=== PATIENT | female | born 1950 | race Two or more races ===

== ENCOUNTER 2024-05-18 10:54 | Outpatient (REF) | payer MEDICARE, OTHER, SELFPAY ==
--- NOTE | ~2024-05-18 | XR_ITS ---
EXAMINATION: XR HAND/WRIST, LEFT CLINICAL INFORMATION: Arthropathic psoriasis. COMPARISON: None available. TECHNIQUE: PA, lateral, oblique, and scaphoid views of the left hand and wrist. FINDINGS: Mild osteopenia. There is no evidence of focal erosion or subperiosteal resorption. Deformity of the left distal radial metaphysis is noted likely related to prior trauma, recommend clinical correlation. Small ossification noted adjacent to the ulnar styloid likely represents old avulsion fracture. There is minimal positive ulnar variance. Mild deformity at the wrist joint. Mild osteoarthritic changes are noted at the first MCP joint and multiple interphalangeal joints. No soft tissue calcifications. Mild arthritic changes at the radiocarpal articulation. No evidence of acute fracture or dislocation. XR/XR hand wrist LT IMPRESSION: No focal erosion or subperiosteal resorption is seen. Mild osteopenia in the left hand. Deformity of the distal radial metaphysis, small ossification adjacent to the ulnar styloid and mild positive ulnar variance most likely reflect sequela of prior trauma. Recommend clinical correlation. Mild osteoarthritic changes at the first MCP joint and radiocarpal joints.
--- NOTE | ~2024-05-18 | XR_ITS ---
EXAMINATION: XR HAND/WRIST, RIGHT CLINICAL INFORMATION: Arthropathic psoriasis. COMPARISON: None available. TECHNIQUE: PA, lateral, oblique, and scaphoid views of the right hand and wrist. FINDINGS: Probable mild osteopenia. No focal erosion or subperiosteal resorption is seen. Osteoarthritic changes are noted at multiple interphalangeal joints as well as 1st MCP joint with the greatest changes noted at the 1st interphalangeal joint with narrowing of the joint space, subarticular sclerosis and marginal osteophytes. [id number] osteoarthritic changes are noted at the 1st MCP joint, 2nd, 3rd and 4th DIP joints. No significant degenerative or arthropathic changes are noted in the wrist. No focal erosion is noted in the wrist. No soft tissue calcifications. No evidence of acute fracture or dislocation. XR/XR hand wrist RT IMPRESSION: No evidence of focal erosion or subperiosteal resorption in the right hand and wrist. Osteoarthritic changes at multiple interphalangeal joints and 1st MCP joint.
[2024-05-18 13:41] LABS: Basophils Percent Auto 0.5 % (0-2); Eosinophils Absolute Auto 0.1 X10*3/uL (0.0-0.4); Eosinophils Percent Auto 1.8 % (0-4); Hematocrit 38.3 % (37.0-47.0); Imm Gran Abs Auto 0.03 X10*3/uL (0.00-0.03); Imm Gran Pct Auto 0.5 % (0.0-0.4); Lymphocytes Percent Auto 33.1 % (20-40); MANUAL DIFF FLAG SCAN; Mean Corpuscular HGB Conc 31.3 g/dl (31.0-35.0); Mean Corpuscular Volume 86.1 fL (80.0-98.0); Mean Platelet Volume 9.2 fL (9.4-12.3); Monocytes Absolute Auto 0.5 X10*3/uL (0.1-1.2); Monocytes Percent Auto 8.1 % (2-11); Neutrophils Absolute Auto 3.5 x10*3/uL (2.0-8.3); Platelet Count 119 X10*3/uL (160-400); Red Blood Count 4.45 X10*6/uL (4.20-5.50); Red Cell Distribution Width 14.4 % (11.0-16.0); SCAN SMEAR FLAG 1; White Blood Count 6.2 X10*3/uL (4.8-10.8)
[2024-05-18 14:13] LABS: SLIDE REVIEW VERIFIED
[2024-05-18 14:20] LABS: Rheumatoid Factor < 13.0 IU/mL (<15.0)
[2024-05-18 14:21] LABS: Alanine Aminotransferase 12 U/L (0-31); Albumin Level 4.5 g/dL (3.5-5.0); Alkaline Phosphatase 117 U/L (39-117); Anion Gap 16 (12-20); Aspartate Amino Transferase 19 U/L (5-31); Bilirubin Total 0.6 mg/dL (0.0-1.0); Blood Urea Nitrogen 19 mg/dL (9-16); C Reactive Protein 2.12 mg/dL (< or = 0.50); Calcium 9.8 mg/dL (8.4-10.2); Carbon Dioxide 25 mmol/L (22-29); Chloride 105 mmol/L (96-108); Erythrocyte Sedimentation Rate 17 MM/HR (0-20); Estimated Glomerular Filt Rate > 60; Glucose Random 103 mg/dL (60-115); Potassium 4.3 mmol/L (3.3-5.1); Sodium 142 mmol/L (135-145); Total Protein 6.8 g/dL (6.5-8.0)
[2024-05-19 05:12] LABS: HBS Num1 0.28 mIU/mL (0-7.99); HBc Num1 0.07 S/CO (0.00-0.79); HBsAGNum1 0.21 S/CO (0.00-0.99); Hepatitis A Antibody IgM 0.13 Index (0-0.79); Hepatitis B Core Antibody Nonreactive (Nonreactive); Hepatitis B Surface Antigen Negative (Negative); ~Hepatitis A Antibody IgM Nonreactive (Nonreactive); ~Hepatitis B Surface Antibody NONREACTIVE (Nonreactive); ~Hepatitis C Antibody Reactive (Nonreactive)
[2024-05-19 10:18] LABS: Complement C3 117 mg/dL (83-193)
[2024-05-19 14:18] LABS: HCV Log PCR <1.18 NOT DETECTED Log IU/mL (NOT DETECTED); HepC Viral Load <15 NOT DETECTED IU/mL (NOT DETECTED)
[2024-05-19 17:38] LABS: Lyme Abs Screen <0.90 index
[2024-05-20 14:18] LABS: IgA 26 mg/dL (70-320); IgG 640 mg/dL (600-1540); IgM 26 mg/dL (50-300)
[2024-05-20 15:18] LABS: Cyclic Citrullinated Peptide <16 UNITS
[2024-05-20 21:14] LABS: Anti DNA DS Antibody <1 IU/mL; Antibody to SS-A Antigen <1.0 NEG AI (<1.0 NEG); Antibody to SS-B Antigen <1.0 NEG AI (<1.0 NEG); SM/Ribonucleoprotein Ab <1.0 NEG AI (<1.0 NEG); Smith Protein <1.0 NEG AI (<1.0 NEG)
[2024-05-20 22:34] LABS: Prot Elec - Albumin 4.2 g/dL (3.8-4.8); Prot Elec - Alpha1 0.4 g/dL (0.2-0.3); Prot Elec - Alpha2 0.8 g/dL (0.5-0.9); Prot Elec - Beta 1 0.4 g/dL (0.4-0.6); Prot Elec - Beta 2 0.2 g/dL (0.2-0.5); Prot Elec - Gamma 0.5 g/dL (0.8-1.7); Prot Elec - Total Protein 6.6 g/dL (6.1-8.1)
[2024-05-20 22:37] LABS: TSpotTB Invalid (Negative)
[2024-05-23 14:13] LABS: Anti Nuclear Antibody Screen NEGATIVE (NEGATIVE)
[2024-05-25 16:42] LABS: HLA B27 Negative (Negative)
[2024-05-31 15:33] LABS: DNAds, Crithidia Antibody Negative (Negative)
== END 2024-05-18 10:55 | disposition home or self-care (01) ==
LOC: HO.XRAY 10:54
PROVIDERS: PCP Physician Assistant; Visit Provider Student in an Organized Health Care Education/Training Program
DX: M25.50 Pain in unspecified joint (principal); L40.50 Arthropathic psoriasis, unspecified; M45.9 Ankylosing spondylitis of unspecified sites in spine; B19.20 Unspecified viral hepatitis C without hepatic coma; M32.9 Systemic lupus erythematosus, unspecified; R79.82 Elevated C-reactive protein (CRP); Z11.7 Encounter for testing for latent tuberculosis infection; Z11.59 Encounter for screening for other viral diseases; Z72.89 Other problems related to lifestyle
CPT/HCPCS: 36415; 73110; 73130; 80053; 82784; 84165; 85025; 85652; 86038; 86140; 86160; 86200; 86225; 86235; 86255; 86334; 86431; 86481; 86617; 86618; 86704; 86706; 86709; 86803; 86812; 87340; 87522; 99202

== ENCOUNTER 2024-05-18 10:54 | Outpatient (AMB) | payer MEDICARE, OTHER, SELFPAY ==
--- NOTE | 2024-05-18 10:57 | A.OFFVIS_ITS ---
Vital Signs 05/18/24 11:15 Height 5 ft 5 in Weight 163 lb 5.8 oz BMI 27.2 BP 124/70 Blood Pressure Location Rt brachial Position Sitting Respiration 16 Pulse 75 Pulse Source Pulse Oximeter Pulse Oximetry (%) 97 Oxygen Delivery Method Room Air Intake Visit Reasons: Joint Pain/CM Intake Note: Patient presents for joint pain. Extreme pain on back of knees back in January and fingers ongoing pain. No medication for the pain. Allergies bee hives Adverse Reaction (Unknown, Uncoded 05/06/24 13:17) Unknown posion leonardo Adverse Reaction (Unknown, Uncoded 05/06/24 13:17) Unknown Medication List - Last Reconciled 05/18/24 by Amee Martinez MD acetaminophen (Acetaminophen Extra Strength) 500 mg PO Q6H PRN ascorbic acid (vitamin C) 100 mg PO DAILY cholecalciferol (vitamin D3) 125 mcg PO DAILY cyanocobalamin (vitamin B-12) (Vitamin B-12) 1,000 mcg PO DAILY d-mannose (AZO D-Mannose) mg PO doxycycline hyclate 100 mg PO BID epinephrine mL IM ferrous gluconate 512 mg PO BID folic acid 1 mg PO DAILY metformin 500 mg PO DAILY pyridoxine (vitamin B6) 100 mg PO DAILY rivaroxaban 20 mg PO DAILY HPI Comments Details: This is a 74-year-old female who presents for evaluation of elevated ESR and CRP in the setting of joint pain and stiffness. Back in January patient and her had a lot of people at home to celebrate pass over, the very next day she woke up with significant fatigue, confusion, also a fever of 101.2 as well as pain and stiffness behind both knees. She could barely walk. The episode self-resolved slowly over the coming 3 weeks. Patient is a poor historian and her helps with history taking. He stated that patient has been having recurrent UTIs over the last 2 years. Stated that she had UTI episode 2 weeks prior to her symptoms treated with antibiotics. They do not remember the name of the antibiotic. They deny any similar episodes. Patient was diagnosed with psoriasis over the last 1-2 years treated with topicals. She takes doxycycline 100 mg Twice daily for acne for years. Denies any history of DVT/PE. She is on Xarelto for AFib. She is unaware of any [facility] [place] history of an autoimmune rheumatic disease. She denies any history suggestive of uveitis or inflammatory bowel disease. March 14 she slipped and fell, she broke and dislocated her left humerus. She has been using a left arm sling [facility] Medical History (Updated 05/18/24 @ 12:51 by Amee Martinez MD) Hepatitis C Afib Rosacea Psoriasis Hypertension CLL (chronic lymphocytic leukemia) Surgical History Hx of hysterectomy History of surgery Family History Father No known health problems Mother Heart disease Social History Household Members: Spouse Housing: House Alcohol intake: never Patient Tobacco Use Status: Former Tobacco user Years Smoked: 10 Female Reproductive History Menstrual Total pregnancies: 5 Full term: 5 Number of Living Children: 4 Review of Systems Const Denies fever(s) and Denies weight loss Musc Denies arthralgias Skin/Breast Reports rash Physical Exam Vital Signs: Last Vital Signs Pulse 75 05/18/24 11:15 Resp 16 05/18/24 11:15 BP 124/70 05/18/24 11:15 Pulse Ox 97 05/18/24 11:15 Oxygen Delivery Method Room Air 05/18/24 11:15 BMI result Body Mass Index 27.2 Const General: cooperative, healthy appearing and comfortable Nutritional Appearance: overweight Orientation/consciousness: patient oriented x3 Limitations: no limitations HEENT Head: Yes normocephalic and Yes atraumatic Mouth: moist mucous membranes Resp Effort & Inspection: normal respiratory effort and able to speak in complete sentences Auscultation: clear to auscultation bilaterally Skin Other: Psoriasis patch on extensor surface of right elbow Neuro General: patient oriented x3 Extrem Other: Left arm in a sling Osteoarthritic changes of both hands with no active synovitis Significant disfigurement of right thumb Normal nailfold capillaroscopy No nail pitting Normal range of motion of right shoulder, right elbow Negative straight leg raise test bilaterally No knee pain with flexion-extension bilaterally Negative Fabere test bilaterally No MTP tenderness bilaterally Negative MTP squeeze test bilaterally Assessment & Plan Assessment & Plan (1) Elevated C-reactive protein (CRP): Code(s): R79.82 - Elevated C-reactive protein (CRP) Category: Medical Plan: This is a 74-year-old female with history of psoriasis and CLL who presents for evaluation of an episode of generalized fatigue, low-grade fever, stiffness and pain behind both knees, this was back in January and self resolved in 3-4 weeks. Given her recent history of psoriasis she might have developed an episode of psoriatic arthritis however other possibility such as a postinfectious inflammatory phenomenon, patient has been having recurrent UTIs. I also wonder whether this was a side effect of an antibiotic. Fluoroquinolones can cause tendonitis, patient and her do not recall the name of the antibiotic I will order comprehensive serology to screen for underlying autoimmune rheumatic disease X-rays of both hands Follow-up in 6 weeks Plan I spent 48 minutes reviewing patient's chart, evaluating patient, ordering diagnostic workup, counseling patient and documenting in the chart Orders: Orders RANJAN Reflex Titer and Pattern Today M32.9 - Systemic lupus erythematosus, unspecified Anti Extractable Nuclear Ag Today M32.9 - Systemic lupus erythematosus, unspecified Complement C4 Today M32.9 - Systemic lupus erythematosus, unspecified DNA Double Stranded-Crithidia Today M32.9 - Systemic lupus erythematosus, unspecified Protein Creatinine Ratio, Ur Today M32.9 - Systemic lupus erythematosus, unspecified UA w Microscopic Today M32.9 - Systemic lupus erythematosus, unspecified Complete Blood Count Auto Diff Today M32.9 - Systemic lupus erythematosus, unspecified Hepatitis A,B,C Profile Today Z11.59 - Encounter for screening for other viral diseases T Spot TB Today Z11.7 - Encounter for testing for latent tuberculosis infection Lyme IgG/IgM w/reflex to WB Today M25.50 - Pain in unspecified joint XR hand wrist LT Today L40.50 - Arthropathic psoriasis, unspecified XR hand wrist RT Today L40.50 - Arthropathic psoriasis, unspecified Anti DNA DS Antibody Today M32.9 - Systemic lupus erythematosus, unspecified Complement C3 Today M32.9 - Systemic lupus erythematosus, unspecified C Reactive Protein Today M32.9 - Systemic lupus erythematosus, unspecified Erythrocyte Sedimentation Rate Today M32.9 - Systemic lupus erythematosus, unspecified Sjogren's Antibodies Today M32.9 - Systemic lupus erythematosus, unspecified Comprehensive Met. Panel Today M32.9 - Systemic lupus erythematosus, unspecified Hepatitis C Viral Load Today B19.20 - Unspecified viral hepatitis C without hepatic coma Immunofixation Pnl, Serum Today M32.9 - Systemic lupus erythematosus, unspecified Protein Electrophoresis, Serum Today M32.9 - Systemic lupus erythematosus, unspecified HLA B27 Today M45.9 - Ankylosing spondylitis of unspecified sites in spine Rheumatoid Factor Today M25.50 - Pain in unspecified joint Cyclic Citrullinated Peptide Today M25.50 - Pain in unspecified joint Coding Level of Care Code New Pt Level 4 (52485) Diagnoses Elevated C-reactive protein (CRP) R79.82
[2024-05-18 11:15] VITALS: BP 124/70; PULSE 75; RESP 16; O2SAT 97; BMI 27.2
== END 2024-05-18 11:54 | disposition home or self-care (01) ==
PROVIDERS: PCP Physician Assistant; Visit Provider Student in an Organized Health Care Education/Training Program
DX: R79.82 Elevated C-reactive protein (CRP) (principal)
CPT/HCPCS: 99204

== ENCOUNTER 2024-07-11 10:22 | Outpatient (AMB) | payer MEDICARE, OTHER, SELFPAY ==
[2024-07-11 10:29] VITALS: BP 130/72; PULSE 73; O2SAT 97; BMI 26.5
--- NOTE | 2024-07-11 10:29 | MHC.OFFVIS ---
Vital Signs 07/11/24 10:29 Height 5 ft 5 in Weight 159 lb BMI 26.5 BP 130/72 Blood Pressure Location Lt brachial Position Sitting Pulse 73 Pulse Source Pulse Oximeter Pulse Oximetry (%) 97 Oxygen Delivery Method Room Air Intake Visit Reasons: Inflammatory arthritis Accompanied by: Spouse Allergies bee hives Adverse Reaction (Unknown, Uncoded 07/11/24 10:32) Unknown posion leonardo Adverse Reaction (Unknown, Uncoded 07/11/24 10:32) Unknown Medication List - Last Reconciled 07/11/24 by Amee Martinez MD acetaminophen (Acetaminophen Extra Strength) 500 mg PO Q6H PRN ascorbic acid (vitamin C) 100 mg PO DAILY cholecalciferol (vitamin D3) 125 mcg PO DAILY cyanocobalamin (vitamin B-12) (Vitamin B-12) 1,000 mcg PO DAILY d-mannose (AZO D-Mannose) mg PO doxycycline hyclate 100 mg PO BID epinephrine mL IM ferrous gluconate 512 mg PO BID folic acid 1 mg PO DAILY metformin 500 mg PO DAILY pyridoxine (vitamin B6) 100 mg PO DAILY rivaroxaban 20 mg PO DAILY HPI Comments Details: Patient returns for follow-up after completion of her diagnostic workup. She has not had any similar episodes of joint pains Initial history: This is a 74-year-old female who presents for evaluation of elevated ESR and CRP in the setting of joint pain and stiffness. Back in January patient and her had a lot of people at home to celebrate pass over, the very next day she woke up with significant fatigue, confusion, also a fever of 101.2 as well as pain and stiffness behind both knees. She could barely walk. The episode self-resolved slowly over the coming 3 weeks. Patient is a poor historian and her helps with history taking. He stated that patient has been having recurrent UTIs over the last 2 years. Stated that she had UTI episode 2 weeks prior to her symptoms treated with antibiotics. They do not remember the name of the antibiotic. They deny any similar episodes. Patient was diagnosed with psoriasis over the last 1-2 years treated with topicals. She takes doxycycline 100 mg Twice daily for acne for years. Denies any history of DVT/PE. She is on Xarelto for AFib. She is unaware of any family history of an autoimmune rheumatic disease. She denies any history suggestive of uveitis or inflammatory bowel disease. March 14 she slipped and fell, she broke and dislocated her left humerus. She has been using a left arm sling [facility] Medical History Hepatitis C Afib Rosacea Psoriasis Hypertension CLL (chronic lymphocytic leukemia) Surgical History Hx of hysterectomy History of surgery Family History Father No known health problems Mother Heart disease Social History Household Members: Spouse Housing: House Alcohol intake: never Patient Tobacco Use Status: Former Tobacco user Years Smoked: 10 Female Reproductive History Menstrual Total pregnancies: 5 Full term: 5 Number of Living Children: 4 Review of Systems Const Denies fever(s) and Denies weight loss Musc Denies arthralgias Skin/Breast Reports rash Physical Exam Vital Signs: Last Vital Signs Pulse 73 07/11/24 10:29 BP 130/72 07/11/24 10:29 Pulse Ox 97 07/11/24 10:29 Oxygen Delivery Method Room Air 07/11/24 10:29 BMI result Body Mass Index 26.5 Const General: cooperative, healthy appearing and comfortable Nutritional Appearance: overweight Orientation/consciousness: patient oriented x3 Limitations: no limitations HEENT Head: Yes normocephalic and Yes atraumatic Mouth: moist mucous membranes Resp Effort & Inspection: normal respiratory effort and able to speak in complete sentences Auscultation: clear to auscultation bilaterally Skin Other: Psoriasis patch on extensor surface of right elbow Neuro General: patient oriented x3 Extrem Other: Osteoarthritic changes of both hands with no active synovitis Significant disfigurement of right thumb Normal nailfold capillaroscopy No nail pitting Normal range of motion of right shoulder, right elbow Negative straight leg raise test bilaterally No knee pain with flexion-extension bilaterally Negative Fabere test bilaterally No MTP tenderness bilaterally Negative MTP squeeze test bilaterally Results Reviewed Results Reviewed: EXAMINATION:? XR HAND/WRIST, LEFT? CLINICAL INFORMATION:? Arthropathic psoriasis.?? COMPARISON:? None available. TECHNIQUE:? PA, lateral, oblique, and scaphoid views of the left hand and wrist. FINDINGS:? Mild osteopenia. There is no evidence of focal erosion or subperiosteal resorption. Deformity of the left distal radial metaphysis is noted likely related to prior trauma, recommend clinical correlation. Small ossification noted adjacent to the ulnar styloid likely represents old avulsion fracture. There is minimal positive ulnar variance. Mild deformity at the wrist joint. Mild osteoarthritic changes are noted at the first MCP joint and multiple interphalangeal joints. No soft tissue calcifications. Mild arthritic changes at the radiocarpal articulation. No evidence of acute fracture or dislocation. XR/XR hand wrist LT IMPRESSION: No focal erosion or subperiosteal resorption is seen. Mild osteopenia in the left hand. Deformity of the distal radial metaphysis, small ossification adjacent to the ulnar styloid and mild positive ulnar variance most likely reflect sequela of prior trauma. Recommend clinical correlation. Mild osteoarthritic changes at the first MCP joint and radiocarpal joints. EXAMINATION:? XR HAND/WRIST, RIGHT? CLINICAL INFORMATION:? Arthropathic psoriasis.?? COMPARISON:? None available.? ? TECHNIQUE:? PA, lateral, oblique, and scaphoid views of the right hand and wrist. FINDINGS:? Probable mild osteopenia. No focal erosion or subperiosteal resorption is seen. Osteoarthritic changes are noted at multiple interphalangeal joints as well as 1st MCP joint with the greatest changes noted at the 1st interphalangeal joint with narrowing of the joint space, subarticular sclerosis and marginal osteophytes. [id number] osteoarthritic changes are noted at the 1st MCP joint, 2nd, 3rd and 4th DIP joints. No significant degenerative or arthropathic changes are noted in the wrist. No focal erosion is noted in the wrist. No soft tissue calcifications. No evidence of acute fracture or dislocation. XR/XR hand wrist RT IMPRESSION: No evidence of focal erosion or subperiosteal resorption in the right hand and wrist. Osteoarthritic changes at multiple interphalangeal joints and 1st MCP joint. Assessment & Plan Assessment & Plan (1) Elevated C-reactive protein (CRP): Code(s): R79.82 - Elevated C-reactive protein (CRP) Category: Medical Plan: This is a 74-year-old female with history of psoriasis and CLL who presents for evaluation of an episode of generalized fatigue, low-grade fever, stiffness and pain behind both knees, this was back in January and self resolved in 3-4 weeks. Given her recent history of psoriasis she might have developed an episode of psoriatic arthritis however other possibility such as a postinfectious inflammatory phenomenon, patient has been having recurrent UTIs. I also wonder whether this was a side effect of an antibiotic. Fluoroquinolones can cause tendonitis, patient and her do not recall the name of the antibiotic Comprehensive serology for underlying autoimmune rheumatic disease is negative. X-rays of hands and wrists are consistent with osteoarthritis. Her CRP however it elevated. Patient has known CLL which may cause elevated inflammatory markers. Discussed with patient and her that at this time she does not qualify to be diagnosed with an autoimmune rheumatic disease. Certainly does not require DMARDs. Advised patient to monitor her symptoms, call the office if she develops another similar episode. Re-evaluate in 6 months Plan I spent 18 minutes reviewing patient's chart, evaluating patient, counseling patient & and documenting in the chart Coding Level of Care Code Est Pt Level 3 (84310) Diagnoses Elevated C-reactive protein (CRP) R79.82
== END 2024-07-11 10:55 | disposition home or self-care (01) ==
PROVIDERS: PCP Physician Assistant; Visit Provider Student in an Organized Health Care Education/Training Program
DX: R79.82 Elevated C-reactive protein (CRP) (principal)
CPT/HCPCS: 99213

== ENCOUNTER → 2024-07-11 10:22 | Outpatient (BNVA) | payer MEDICARE, OTHER, SELFPAY | PROVIDERS: PCP Physician Assistant; Visit Provider Student in an Organized Health Care Education/Training Program | DX: R79.82 Elevated C-reactive protein (CRP) (principal) | CPT/HCPCS: 99212 ==